=== PATIENT | female | born 1980 | race American Indian/Alaskan Native ===

== ENCOUNTER 2018-10-24 21:54 | Emergency (ER) | payer SELFPAY ==
[2018-10-24 22:30] VITALS: BP 117/62; PULSE 80; RESP 16; TEMP 98.2; O2SAT 98
[2018-10-24] MEDS ORDERED: Sodium Chloride 0.9% 1,000 ML IV STA (23:22)
[2018-10-24 23:29] LABS: BASO # 0.01 K/mm3 (0.0-2.0); BASO % 0.1 % (0.0-3.0); EOS # 0.1 (0.0-0.7); EOS % 1.1 % (1.5-5.0); GRAN # 8.63 (1.4-6.5); GRAN % 73.9 % (50.0-68.0); LYMPH # 2.3 (1.2-3.4); MEAN CELL VOLUME 64.2 fl (80.0-105.0); MEAN CORPUSCULAR HEMOGLOBIN 18.1 pg (25.0-35.0); MEAN CORPUSCULAR HGB CONC 28.3 g/dl (31.0-37.0); MEAN PLATELET VOLUME 9.3 fl (7.0-11.0); MONO # 0.6 (0.1-0.6); MONO % 4.9 % (1.0-6.0); RBC 4.41 10^6/uL (3.5-6.1); RED CELL DISTRIBUTION WIDTH 19.1 % (11.5-14.5); WHITE BLOOD COUNT 11.7 10^3/uL (4.5-11.0)
[2018-10-24 23:33] LABS: ALB/GLOB RATIO 1.4 (1.1-1.8)
[2018-10-24 23:34] LABS: INR 1.12; PARTIAL THROMBOPLASTIN TIME 26.1 Seconds (25.1-36.5); PROTHROMBIN TIME 12.8 SECONDS (9.4-12.5)
[2018-10-24 23:39] LABS: ALBUMIN 4.8 g/dL (3.0-4.8); ALT/SGPT 37 U/L (7-56); AST/SGOT 98 U/L (14-36); BLOOD UREA NITROGEN 13 mg/dL (7-21); CALCIUM 9.5 mg/dL (8.4-10.5); GFR NON-AFRICAN AMERICAN > 60; LIPASE 69 U/L (23-300)
[2018-10-25 00:31] LABS: PH,URINE 5.5 (4.7-8.0); URINE BILIRUBIN NEGATIVE (NEGATIVE); URINE BLOOD NEGATIVE (NEGATIVE); URINE GLUCOSE (UA) NEGATIVE (NEGATIVE); URINE LEUKOCYTE ESTERASE NEGATIVE Leu/uL (NEGATIVE); URINE PROTEIN NEGATIVE mg/dL (<30 mg/dL); URINE UROBILINOGEN 0.2 E.U./dL (<1 E.U./dL)
[2018-10-25 00:56] LABS: URINE APPEARANCE CLEAR (CLEAR); URINE COLOR YELLOW (YELLOW)
--- NOTE | 2018-10-25 01:52 | ED PDOC ---
Arrival/HPI - General Chief Complaint: Abdominal Pain Time Seen by Provider: 10/24/18 22:17 Historian: Patient - History of Present Illness Narrative History of Present Illness (Text): 10/25/18 01:49 38yo female with pmhx of anemia who present with complaint of diffuse abdominal pain with associated nausea and vomiting since this evening. +Flatulence. Describes pain as crampy. Reports normal BM today. Denies urinary symptoms, diarrhea, constipation, melena, hematemesis, hematuria, chest pain, SOB, fever, chills, any other complaint. Past Medical History - Provider Review Nursing Documentation Reviewed: Yes - Infectious Disease Hx of Infectious Diseases: None - Psychiatric Hx Substance Use: No - Anesthesia Hx Anesthesia: No Family/Social History - Physician Review Nursing Documentation Reviewed: Yes Family/Social History: Unknown Family HX Smoking Status: Current Some Days Smoker Hx Alcohol Use: Yes Hx Substance Use: No Allergies/Home Meds Allergies/Adverse Reactions: Allergies Penicillins Adverse Reaction (Verified 10/24/18 22:22) RASH Review of Systems - Physician Review All systems were reviewed & negative as marked: Yes - Review of Systems Constitutional: Normal Eyes: Normal ENT: Normal Respiratory: Normal Cardiovascular: Normal Gastrointestinal: Abdominal Pain, Nausea, Vomiting. absent: Constipation, Diarrhea, Hematochezia, Hematemesis Genitourinary Female: Normal Musculoskeletal: Normal Skin: Normal Neurological: Normal Endocrine: Normal Hemo/Lymphatic: Normal Psychiatric: Normal Physical Exam Vital Signs Reviewed: Yes Vital Signs Temp Pulse Resp BP Pulse Ox 10/24/18 22:29 98.2 F 80 16 117/62 98 Temperature: Afebrile Blood Pressure: Normal Pulse: Regular Respiratory Rate: Normal Appearance: Positive for: Well-Appearing, Non-Toxic, Comfortable Pain Distress: None Mental Status: Positive for: Alert and Oriented X 3 - Systems Exam Head: Present: Atraumatic, Normocephalic Pupils: Present: PERRL Extroacular Muscles: Present: EOMI Conjunctiva: Present: Normal Mouth: Present: Moist Mucous Membranes Neck: Present: Normal Range of Motion Respiratory/Chest: Present: Clear to Auscultation, Good Air Exchange. No: Respiratory Distress, Accessory Muscle Use Cardiovascular: Present: Regular Rate and Rhythm, Normal S1, S2. No: Murmurs Abdomen: Present: Tenderness (Periumbilical tenderness), Normal Bowel Sounds, Guarding (Voluntary), Other (Soft). No: Distention, Peritoneal Signs, Rebound, McBurney's Point Tender, Rovsing's Sign Present Back: Present: Normal Inspection Upper Extremity: Present: Normal Inspection. No: Cyanosis, Edema Lower Extremity: Present: Normal Inspection. No: Edema Neurological: Present: GCS=15, CN II-XII Intact, Speech Normal Skin: Present: Warm, Dry, Normal Color. No: Rashes Psychiatric: Present: Alert, Oriented x 3, Normal Insight, Normal Concentration Medical Decision Making ED Course and Treatment: 10/25/18 02:23 PT presented to ED for stated history Labs 1L NS, Zofran, Pepcid, Toradol Abdominal pelvic CT Result was Reviewed and mild leukocytosis was noted. H/H is 8.0. On discussion pt noted chronic anemia. States her number is usually around 8.0. states she s uppose to be taking iron supplement, but is not. she is not symptomatic at this time. Abd/Pelvic CT 10/25/18 02:50 IMPRESSION: Bilateral basilar atelectatic pulmonary changes. Small sliding hiatal hernia. Moderately dilated small bowel loop in the mid abdomen with a transition zone in the right lower quadrant. Focal ileus versus partial bowel obstruction. 7.8x8.3 cm right lateral uterine fibroid. Minimal amount of periuterine/pelvic free fluid. All result was DW the pt and she was offered admission. Patient however declined admission stating that she pressed the call button for 2ominutes without response. I explained that a code was taking place. She states she will rather go home and f/u with outpt Doctor. the risk of perforation, sepsis, was DW the pt and she verbalized understanding. 10/25/18 03:02 Leaving Against Medical Advice (AMA): The patient is choosing to leave against medical advice. I have personally explained to the patient that choosing to do so may result in permanent bodily harm or . I have discussed at great length that without further evaluation and monitoring there may be unforeseen circumstances and/or deterioration cau sing permanent bodily harm or as a result of their choice. The patient is alert, oriented, and shows the mental capacity to make clear decisions regarding the patients health care at this time. The patient continues to wish to leave against medical advice. In light of the patients decision to leave against medical advice, follow-up has been arranged and the patient is aware of the importance to following up as instructed. The patient has been advised that they should return to the emergency room immediately if they change their mind at any time, or if their condition begins to change or worsen in any way. - Lab Interpretations Lab Results: PT 12.8 SECONDS (9.4-12.5) H 10/24/18 23:11 INR 1.12 10/24/18 23:11 APTT 26.1 Seconds (25.1-36.5) 10/24/18 23:11 Total Bilirubin 0.4 mg/dL (0.2-1.3) 10/24/18 23:11 AST 98 U/L (14-36) H 10/24/18 23:11 ALT 37 U/L (7-56) 10/24/18 23:11 Alkaline Phosphatase 65 U/L (38-126) 10/24/18 23:11 Total Protein 8.3 g/dL (5.8-8.3) 10/24/18 23:11 Albumin 4.8 g/dL (3.0-4.8) 10/24/18 23:11 Globulin 3.5 gm/dL 10/24/18 23:11 Albumin/Globulin Ratio 1.4 (1.1-1.8) 10/24/18 23:11 Lipase 69 U/L (23-300) 10/24/18 23:11 Urine Color Yellow (YELLOW) 10/24/18 23:42 Urine Appearance Clear (CLEAR) 10/24/18 23:42 Urine pH 5.5 (4.7-8.0) 10/24/18 23:42 Ur Specific [place] >= 1.030 (1.005-1.035) 10/24/18 23:42 Urine Protein Negative mg/dL (<30 mg/dL) 10/24/18 23:42 Urine Glucose (UA) Negative mg/dL (NEGATIVE) 10/24/18 23:42 Urine Ketones 40 mg/dL (NEGATIVE) H 10/24/18 23:42 Urine Blood Negative (NEGATIVE) 10/24/18 23:42 Urine Nitrate Negative (NEGATIVE) 10/24/18 23:42 Urine Bilirubin Negative (NEGATIVE) 10/24/18 23:42 Urine Urobilinogen 0.2 E.U./dL (<1 E.U./dL) 10/24/18 23:42 Ur Leukocyte Esterase Negative [place]/uL (NEGATIVE) 10/24/18 23:42 - RAD Interpretation Radiology Orders: 10/24/18 23:44 ABD & PELVIS W/O PO OR IV CONT [CT] Stat - Medication Orders Current Medication Orders: Discontinued Medications Famotidine (Pepcid) 20 mg IVP STAT STA Stop: 10/24/18 22:36 Last Admin: 10/24/18 23:31 Dose: 20 mg IVP Administration Document 10/24/18 23:31 SS (Rec: 10/24/18 23:31 SS [id number]) Charges for Administration # of IVP Administrations 1 Sodium Chloride (Sodium Chloride 0.9%) 1,000 mls @ 999 mls/hr IV .Q1H1M STA Stop: 10/25/18 00:22 Last Admin: 10/24/18 23:31 Dose: 999 mls/hr eMAR Start Stop Document 10/24/18 23:31 SS (Rec: 10/24/18 23:31 SS [id number]) Intravenous Solution Start Date 10/24/18 Start Time 23:31 End Date 10/25/18 End time 00:31 Total Infusion Time 60 Ketorolac Tromethamine (Toradol) 30 mg IVP STAT STA Stop: 10/24/18 23:55 Ondansetron HCl (Zofran Inj) 4 mg IVP STAT STA Stop: 10/24/18 22:36 Last Admin: 10/24/18 23:31 Dose: 4 mg IVP Administration Document 10/24/18 23:31 SS (Rec: 10/24/18 23:31 SS [id number]) Charges for Administration # of IVP Administrations 1 Disposition/Present on Arrival - Present on Arrival Any Indicators Present on Arrival: No History of DVT/PE: No History of Uncontrolled Diabetes: No Urinary Catheter: No History of Decub. Ulcer: No History Surgical Site Infection Following: None - Disposition Have Diagnosis and Disposition been Completed?: Yes Diagnosis: Small bowel obstruction, Abdominal pain Disposition: AGAINST MEDICAL ADVICE Disposition Time: 03:00 Patient Problems: Current Active Problems Problem Status Onset Small bowel obstruction Acute Condition: UNKNOWN Discharge Instructions (ExitCare): Small Bowel Obstruction Additional Instructions: Follow up with your Doctor/Surgeon Return to ED at anytime for worsening symptoms Prescriptions: Famotidine [Pepcid] 40 mg PO DAILY #10 tab Ondansetron ODT [Zofran ODT] 4 mg PO Q6 #7 odt Referrals: Jose Sahni MD [Staff Provider] - Follow up with primary Forms: [employer] [place] (Ind[place]ian)
--- NOTE | 2018-10-25 10:16 | CT ---
Date of service: 10/25/2018 PROCEDURE: CT Abdomen and Pelvis without intravenous contrast HISTORY: Abdominal pain. Negative test (concurrent with this examination). A COMPARISON: None. TECHNIQUE: Unenhanced. Neither IV nor oral contrast administered Radiation dose: Total exam DLP = 1040.47 mGy-cm. This CT exam was performed using one or more of the following dose reduction techniques: Automated exposure control, adjustment of the mA and/or kV according to patient size, and/or use of iterative reconstruction technique. FINDINGS: LOWER THORAX: Distal esophageal thickening, nonspecific in incompletely visualized finding. Esophagitis should be considered. LIVER: Unremarkable. No gross lesion or ductal dilatation. GALLBLADDER AND BILE DUCTS: Unremarkable. PANCREAS: Unremarkable. No gross lesion or ductal dilatation. SPLEEN: Unremarkable. ADRENALS: Unremarkable. No mass. KIDNEYS AND URETERS: Unremarkable. No hydronephrosis. No solid mass. VASCULATURE: Unremarkable. No aortic aneurysm. No atherosclerotic calcification or mural plaque present. BOWEL: Nondilated fluid-filled small bowel. Constipation without fecal impaction or obstruction. APPENDIX: Unremarkable. Normal appendix. PERITONEUM: Trace free fluid identified in the pelvis/cul de sac.. No free air. LYMPH NODES: Unremarkable. No enlarged lymph nodes. BLADDER: Unremarkable. REPRODUCTIVE: Enlarged, myomatous uterus. BONES: No acute fracture. OTHER FINDINGS: None. IMPRESSION: No evidence of mechanical obstruction. Fluid-filled nondilated loops of small bowel identified. Additional benign and/or incidental findings described above. Concordant results (preliminary interpretation) provided by [employer]. Procedure Completed: :18. Preliminary Report: Dictated and Authenticated: 02:32. Final Interpretation: 10:09.
== END 2018-10-25 03:28 | disposition left against medical advice (07) ==
LOC: ED 21:54
DX: K56.609 Unspecified intestinal obstruction, unspecified as to partial versus complete obstruction (principal); R10.84 Generalized abdominal pain
CPT/HCPCS: 74176; 80053; 81003; 81025; 83690; 83735; 85025; 85610; 85730; 96361; 96374; 96375; 99285; J2405; J7030